=== PATIENT | female | born 1960 | race Caucasian/White ===

== ENCOUNTER 2016-11-14 18:55 | Inpatient (IN) | payer OTHER ==
[~2016-11-14] VITALS: Ht 162.6 cm; Wt 80.0 kg
[~2016-11-14 18:55] MED LIST: AMBI10TA PO; ASPI325T PO; ATOR40TA49 PO; CLON.1 PO; HYDR-3129 PO; IBUP-238 PO; IBUP800 PO; LISI-360 PO; METO25 PO; MORPHINE SULFATE 4 MG/ML INJ IV PRN; NITR.4 SL; PLAV75TA PO; XANA1TAB6 PO
[2016-11-14 18:57] VITALS: BP 94/65; PULSE 81; RESP 16; TEMP 98.1; O2SAT 97
[2016-11-14] MEDS ORDERED: SODIUM CHLOR 0.9% 1000 ML INJ 1,000 ML IV SCH (19:19)
[2016-11-14] MEDS ORDERED: BACT400T PO (19:20)
[2016-11-14] MEDS ORDERED: AMBI10TA PO (19:20)
[2016-11-14] MEDS ORDERED: METF500T PO (19:20)
[2016-11-14] MEDS ORDERED: LISI40TA PO (19:20)
[2016-11-14] MEDS ORDERED: XANA1TAB2 PO (19:20)
[2016-11-14] MEDS ORDERED: METO25TA3 PO (19:20)
[2016-11-14] MEDS ORDERED: ATOR40TA16 PO (19:20)
[2016-11-14] MEDS ORDERED: HYDR-3583 PO (19:20)
[2016-11-14] MEDS ORDERED: PLAV75TA29 PO (19:20)
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
[2016-11-14] MEDS ORDERED: ONDANSETRON HCL 4 MG/2 ML VIAL IVP ONE (19:30)
[2016-11-14] MEDS ORDERED: SODIUM CHLORIDE 0.9% FLUSH 5 ML FLUSH IVF PRN (19:30)
[2016-11-14 19:41] LABS: AUTOMATED NEUTROPHIL # 4.4 TH/MM3 (1.8-7.7); BASOPHIL % 0.5 % (0.0-2.0); EOSINOPHIL # 0.2 TH/MM3 (0-0.4); EOSINOPHIL % 3.3 % (0.0-4.0); HEMATOCRIT 43.5 % (35.0-46.0); HEMO FLAGS DIFF FINAL; LYMPH % 9.2 % (9.0-44.0); LYMPHOCYTE # 0.5 TH/MM3 (1.0-4.8); MEAN CELL VOLUME 86.5 FL (80.0-100.0); MEAN CORPUSCULAR HEMOGLOBIN 28.2 PG (27.0-34.0); MEAN CORPUSCULAR HGB CONC 32.6 % (32.0-36.0); MONO % 8.9 % (0.0-8.0); NEUT % 78.1 % (16.0-70.0); PLATELET COUNT 213 TH/MM3 (150-450); RED BLOOD COUNT 5.03 MIL/MM3 (4.00-5.30); RED CELL DISTRIBUTION WIDTH 15.5 % (11.6-17.2); WHITE BLOOD COUNT 5.7 TH/MM3 (4.0-11.0)
[2016-11-14 19:43] LABS: BLOOD, URINE NEG (NEG); COMMENT (UR) CULT NOT INDICATED; CULTURE IF INDICATED CULT NOT INDICATED; GLUCOSE,URINE NEG (NEG); HYALINE CAST, URINE 5 /lpf (RARE); KETONE, URINE NEG (NEG); MUCUS URINE FEW /lpf (OCC); NITRITE,URINE NEG (NEG); PH, URINE 5.5 (5.0-8.5); SQUAMOUS EPITHELIAL CELL URINE 3 /hpf (0-5); URINE COLOR YELLOW (YELLW/STRAW)
[2016-11-14 19:54] LABS: ALT (GPT) 442 U/L (10-53); ANION GAP 8 MEQ/L (5-15); AST (GOT) 279 U/L (15-37); BICARBONATE 24.1 MEQ/L (21.0-32.0); BLOOD UREA NITROGEN 31 MG/DL (7-18); CHLORIDE 101 MEQ/L (98-107); GLOMERULAR FILTRATION RATE 30 ML/MIN (>89); POTASSIUM 4.4 MEQ/L (3.5-5.1); SODIUM (NA) 133 MEQ/L (136-145)
[2016-11-14 19:57] LABS: ALKALINE PHOSPHATASE 373 U/L (45-117); TOTAL BILIRUBIN ADULT 0.7 MG/DL (0.2-1.0)
--- NOTE | 2016-11-14 20:03 | RADRPT ---
EXAM DATE/TIME: 11/14/2016 19:31 [facility] COMPARISON: CHEST SINGLE AP, May 25, 2016, 12:39. INDICATIONS : Cough. MEDICAL HISTORY : Hypertension. Cardiovascular disease. SURGICAL HISTORY : Coronary artery stent. ENCOUNTER: Initial ACUITY: 2 days PAIN SCORE: 0/10 LOCATION: Bilateral chest FINDINGS: The lungs are clear without infiltrate, nodule, or mass. There is no appreciable pleural effusion fo r technique. Heart and mediastinum are unremarkable. CONCLUSION: No acute cardiopulmonary disease. Sendy Gallo MD on November 14, 2016 at 20:00 Board Certified Radiologist. This report was verified electronically.
[2016-11-14] MEDS ORDERED: NALOXONE HCL 0.4 MG/ML AMP IV PRN (20:45)
[2016-11-14] MEDS: SODIUM CHLORIDE 0.9% FLUSH 5 ML FLUSH FLUSH SCH (20:57)
[2016-11-14] MEDS: SODIUM CHLOR 0.9% 1000 ML INJ 1,000 ML IV SCH (20:58)
[2016-11-14] MEDS ORDERED: GLUCAGON 1 MG/ML VIAL OTHER PRN (21:00)
[2016-11-14] MEDS: INSULIN ASPART SUPPLEMENTAL SCALE SQ SCH (21:00)
[2016-11-14] MEDS ORDERED: DEXTROSE 50% IN WATER 50 ML VIAL(D50) IV PUSH PRN (21:00)
[2016-11-14 21:12] VITALS: O2SAT 99
[2016-11-14 22:34] VITALS: BP 101/66; PULSE 73; RESP 18; TEMP 98.2; O2SAT 96
[2016-11-14] MEDS ORDERED: ZANTTAB9 PO (23:45)
[2016-11-14] MEDS ORDERED: RANITIDINE HCL 150 MG TAB PO SCH (23:45)
[2016-11-15] MEDS: FAMOTIDINE 20 MG TAB PO SCH ×3 (00:11→21:04)
[2016-11-15 04:07] VITALS: BP 118/69; PULSE 75; RESP 16; TEMP 98.3; O2SAT 97
[2016-11-15] MEDS: SODIUM CHLOR 0.9% 1000 ML INJ 1,000 ML IV SCH ×2 (06:11→11:42)
[2016-11-15] MEDS: INSULIN ASPART SUPPLEMENTAL SCALE SQ SCH ×4 (06:12→21:00)
[2016-11-15 06:59] LABS: AUTOMATED NEUTROPHIL # 2.6 TH/MM3 (1.8-7.7); BASOPHIL % 0.5 % (0.0-2.0); EOSINOPHIL # 0.2 TH/MM3 (0-0.4); EOSINOPHIL % 5.9 % (0.0-4.0); HEMATOCRIT 38.9 % (35.0-46.0); HEMO FLAGS DIFF FINAL; LYMPH % 12.7 % (9.0-44.0); LYMPHOCYTE # 0.5 TH/MM3 (1.0-4.8); MEAN CELL VOLUME 85.6 FL (80.0-100.0); MEAN CORPUSCULAR HEMOGLOBIN 28.7 PG (27.0-34.0); MEAN CORPUSCULAR HGB CONC 33.5 % (32.0-36.0); MONO % 10.5 % (0.0-8.0); NEUT % 70.4 % (16.0-70.0); PLATELET COUNT 148 TH/MM3 (150-450); RED BLOOD COUNT 4.55 MIL/MM3 (4.00-5.30); RED CELL DISTRIBUTION WIDTH 15.3 % (11.6-17.2); WHITE BLOOD COUNT 3.6 TH/MM3 (4.0-11.0)
[2016-11-15 07:18] LABS: BICARBONATE 23.5 MEQ/L (21.0-32.0); POTASSIUM 4.2 MEQ/L (3.5-5.1)
[2016-11-15 07:56] VITALS: BP 121/72; PULSE 80; RESP 18; TEMP 98; O2SAT 95
[2016-11-15] MEDS: SODIUM CHLORIDE 0.9% FLUSH 5 ML FLUSH FLUSH SCH ×2 (08:56→21:04)
[2016-11-15] MEDS ORDERED: GLUCAGON 1 MG/ML VIAL OTHER PRN (09:45)
[2016-11-15] MEDS ORDERED: DEXTROSE 50% IN WATER 50 ML VIAL(D50) IV PUSH PRN (09:45)
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
[2016-11-15] MEDS ORDERED: INSULIN ASPART SUPPLEMENTAL SCALE SQ SCH (11:00)
[2016-11-15] MEDS: CLOPIDOGREL 75 MG TAB PO SCH (11:40)
[2016-11-15] MEDS: MORPHINE SULFATE 4 MG/ML INJ IV PRN ×2 (11:41→18:35)
[2016-11-15 12:09] VITALS: BP 99/60; PULSE 70; RESP 18; TEMP 98; O2SAT 96
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
[2016-11-15] MEDS ORDERED: PILL SPLITTER OTHER PRN (14:15)
[2016-11-15 16:28] VITALS: BP 104/62; PULSE 73; RESP 18; TEMP 98.2; O2SAT 99
--- NOTE | 2016-11-15 17:15 | RADRPT ---
EXAM DATE/TIME: 11/15/2016 15:21 [facility] COMPARISON: No previous studies available for comparison. EXTERNAL COMPARISON : [facility], US BILATERAL RENAL & BLADDER, November 11, 2016 INDICATIONS : Increased lab values. MEDICAL HISTORY : Hypertension. Gastroesophageal reflux disease. Cerebrovascular accident. Abdominal aortic aneurysm. Diabetes. Squamous cell carcinoma. SURGICAL HISTORY : Tonsillectomy. Cardiac stents. Orthopedic surgey, right arm. ENCOUNTER: Initial ACUITY: 1 day PAIN SCORE: 6/10 LOCATION: Abdomen. MEASUREMENTS: LIVER: 16.9 cm length COMMON DUCT: 10 mm RIGHT KIDNEY: 10.3 x 5.0 x 4.1 cm SPLEEN: 11.6 cm length FINDINGS: LIVER: Normal echotexture without focal lesion or ductal dilatation. Hepatopedal flow within the portal vein . COMMON DUCT: No intraluminal mass or stone visualized. GALLBLADDER: Freely mobile stone is seen within the lumen of the gallbladder. No gallbladder wall thickening or pe richolecystic fluid. PANCREAS: The visualized portions are within normal limits. RIGHT KIDNEY: No hydronephrosis, stone or mass. SPLEEN: No focal lesion. CONCLUSION: 1. Dilated common bile duct. No obstructing stone or mass observed. Consider MRCP to further evaluate . 2. Cholelithiasis. No sonographic evidence to suggest acute cholecystitis. Gómez Woodard Jr., MD on November 15, 2016 at 17:10 Board Certified Radiologist. This report was verified electronically.
[2016-11-15 19:36] VITALS: BP 107/68; PULSE 69; RESP 20; TEMP 98; O2SAT 97
[2016-11-15 20:56] LABS: ACETAMINOPHEN LESS THAN 2.0 MCG/ML (10.0-30.0); FERRITIN 208 NG/ML (8-252); TRANSFERRIN IRON PROFILE 206 MG/DL (200-360)
[2016-11-15] MEDS: ALPRAZolam 1 MG TAB PO PRN (21:06)
[2016-11-15 23:23] VITALS: BP 111/69; PULSE 82; RESP 20; TEMP 98.2; O2SAT 96
[2016-11-16] MEDS: SODIUM CHLOR 0.9% 1000 ML INJ 1,000 ML IV SCH ×3 (02:22→22:43)
[2016-11-16] MEDS: MORPHINE SULFATE 4 MG/ML INJ IV PRN ×3 (02:23→23:54)
[2016-11-16] MEDS: ONDANSETRON HCL 4 MG/2 ML VIAL IVP PRN (02:32)
[2016-11-16 04:40] VITALS: BP 110/65; PULSE 70; RESP 20; TEMP 98.2; O2SAT 97
[2016-11-16 05:48] LABS: HEMATOCRIT 37.6 % (35.0-46.0); MEAN CELL VOLUME 85.6 FL (80.0-100.0); MEAN CORPUSCULAR HEMOGLOBIN 28.2 PG (27.0-34.0); PLATELET COUNT 140 TH/MM3 (150-450); RED CELL DISTRIBUTION WIDTH 15.3 % (11.6-17.2); REVIEW FLAG FINAL; WHITE BLOOD COUNT 2.7 TH/MM3 (4.0-11.0)
[2016-11-16] MEDS: INSULIN ASPART SUPPLEMENTAL SCALE SQ SCH ×4 (06:20→21:00)
[2016-11-16 06:53] LABS: ALT (GPT) 381 U/L (10-53); ANION GAP 6 MEQ/L (5-15); AST (GOT) 241 U/L (15-37); BICARBONATE 27.9 MEQ/L (21.0-32.0); BLOOD UREA NITROGEN 10 MG/DL (7-18); CHLORIDE 103 MEQ/L (98-107); GLOMERULAR FILTRATION RATE 60 ML/MIN (>89); POTASSIUM 4.5 MEQ/L (3.5-5.1); SODIUM (NA) 137 MEQ/L (136-145)
[2016-11-16 06:54] LABS: ALKALINE PHOSPHATASE 350 U/L (45-117); TOTAL BILIRUBIN ADULT 0.6 MG/DL (0.2-1.0)
[2016-11-16] MEDS: SODIUM CHLORIDE 0.9% FLUSH 5 ML FLUSH FLUSH SCH ×2 (07:43→21:00)
[2016-11-16] MEDS: FAMOTIDINE 20 MG TAB PO SCH ×2 (07:43→20:17)
[2016-11-16] MEDS: CLOPIDOGREL 75 MG TAB PO SCH (07:43)
[2016-11-16] MEDS: METOPROLOL TARTRATE 25 MG TAB PO SCH (07:43)
[2016-11-16] MEDS: ASPIRIN 81 MG CHEW TAB PO SCH (07:43)
[2016-11-16 08:31] VITALS: BP 122/74; PULSE 63; RESP 18; TEMP 98.7; O2SAT 97
[2016-11-16] MEDS: ALPRAZolam 1 MG TAB PO PRN ×2 (08:58→20:17)
--- NOTE | 2016-11-16 08:59 | HHI.GIFU ---
Subjective Remarks Resting in bed. No n/v. Does continue to have pain in right upper quadrant side, radiating to back. Afebrile. (Johnna Melendez) Objective Vitals I&O Vital Signs Date Time Temp Pulse Resp B/P Pulse Ox O2 Delivery O2 Flow Rate FiO2 11/16/16 08:31 98.7 63 18 122/74 97 11/16/16 04:40 98.2 70 20 110/65 97 11/15/16 23:23 98.2 82 20 111/69 96 11/15/16 19:36 98.0 69 20 107/68 97 11/15/16 16:28 98.2 73 18 104/62 99 11/15/16 12:09 98.0 70 18 99/60 96 I/O 11/15/16 11/15/16 11/15/16 11/16/16 11/16/16 11/16/16 07:00 15:00 23:00 07:00 15:00 23:00 Intake Total 802 ml Balance 802 ml Intake IV Total 802 ml # Voids 1 Laboratory Laboratory Tests Test 11/15/16 11/16/16 20:00 05:15 Iron Level 42 Total Iron Binding Capacity 288 Percent Iron Saturation 14.6 Ferritin 208 Acetaminophen Level LESS THAN 2.0 White Blood Count 2.7 Red Blood Count 4.40 Hemoglobin 12.4 Hematocrit 37.6 Mean Corpuscular Volume 85.6 Mean Corpuscular Hemoglobin 28.2 Mean Corpuscular Hemoglobin 33.0 Concent Red Cell Distribution Width 15.3 Platelet Count 140 Mean Platelet Volume 8.1 Sodium Level 137 Potassium Level 4.5 Chloride Level 103 Carbon Dioxide Level 27.9 Anion Gap 6 Blood Urea Nitrogen 10 Creatinine 0.97 Estimat Glomerular Filtration 60 Rate Random Glucose 104 Calcium Level 8.6 Total Bilirubin 0.6 Aspartate Amino Transf 241 (AST/SGOT) Alanine Aminotransferase 381 (ALT/SGPT) Alkaline Phosphatase 350 Total Protein 6.4 Albumin 3.2 Date/Time Procedure Status Source Growth 11/14/16 19:25 Influenza Types A,B Antigen (HAYLEY) - Final Complete Nasal Washing NEGATIVE FOR FLU A AND B ANTIGEN.... Imaging Last Impressions Liver Ultrasound 11/15/16 0000 Signed Impressions: Service Date/Time: Tuesday, November 15, 2016 15:21 - CONCLUSION: 1. Dilated common bile duct. No obstructing stone or mass observed. Consider MRCP to further evaluate. 2. Cholelithiasis. No sonographic evidence to suggest acute cholecystitis. Gómez Woodard Jr., MD Chest X-Ray 11/14/16 0000 Signed Impressions: Service Date/Time: Monday, November 14, 2016 19:31 - CONCLUSION: No acute cardiopulmonary disease. Sendy Gallo MD Physical Exam HEENT: Normocephalic; atraumatic; no jaundice. CHEST: CTA CARDIAC: RRR ABDOMEN: Soft, nondistended, mild RUQ tenderness; no hepatosplenomegaly; bowel sounds are present in all four quadrants. EXTREMITIES: No clubbing, cyanosis, or edema. SKIN: Normal; no rash; no jaundice. SCRUBBER SYSTEM ATTENDANT: No focal deficits; alert and oriented times three. (Johnna Melendez FARM LABORER) Assessment and Plan Plan ASSESSMENT: - Elevated LFTs. Liver Ultrasound (11/15/16)-----> 1. Dilated common bile duct. No obstructing stone or mass observed. Consider MRCP to further evaluate. 2. Cholelithiasis. No sonographic evidence to suggest acute cholecystitis. Hepatitis negative, EBV pending, CMV pending, Alpha 1 Antitrypsin pending, Ceruloplasmin pending, Iron Saturation 14.6%, Ferritin 208, ALE pending, ASMA pending, AMA pending. LFTs essentially unchanged, with T. Bili 0.6, AST 241, ALT 381, Alk Phosph 350. Clinically, she continues to have RUQ discomfort, radiating to back. Given this, persistent elevation of LFTs, and dilated CBD on US, will order MRCP to r/o biliary obstruction as etiology for her LFT derangement. Other etiologies could be ? medication induced, shocked (although MAP has been above 65 since arrival to[facility]) - CHERRY, Improved. - Leukopenia, Thrombocytopenia per attending Plt 140 - CAD, 5 stents, on Plavix and ASA - HTN, anxiety, Hyperlipidemia, DM per attending Plan: - Clear liquids - MRCP - Await ALE, ASMA, AMA - Await Ceruloplasmin, Alpha 1 antitrypsin deficiency - Await Celiac panel, EBV, CMV - CBC, LFTs in the am - Monitor labs closely - Avoid hepatotoxic meds - Further recommendation to follow based on results above - Patient seen and examined by Dr. Copeland and myself and this note is written on his behalf. ADDENDUM. MRCP (11/16/16)----> 1. There is a gallstone in the gallbladder. No surrounding inflammatory changes are demonstrated. 2. The common bile duct is dilated 1 cm. No definite common bile duct stones are demonstrated. Pt with persistent elevation of transaminases and RUQ discomfort, will schedule for ercp with possible sphincterotomy, possible stent placement in am (Johnna Melendez) Physician Comments Seen and examined, discussed with patient risk, benefits and possible complications of the ERCP, will need to role out CBD stone/ stricture/ampullary lesion. will proceed in AM. (Becky Copeland MD) Johnna Melendez Nov 16, 2016 08:59 Becky Copeland MD Nov 16, 2016 20:57
--- NOTE | 2016-11-16 09:20 | HHI.PR ---
Subjective History of Present Illness Patient feels better No more nausea or vomiting Less coughing No sputum production No fever or chills No abdominal pain Positive chronic back pain No chest pain or shortness of breath Offers no other complaints at bedside Vitals/Results Intake & Output 11/15/16 11/15/16 11/16/16 14:59 22:59 06:59 Intake Total 802 ml Balance 802 ml Intake IV Total 802 ml # Voids 1 Vital Signs Vital Signs Date Time Temp Pulse Resp B/P Pulse Ox O2 Delivery O2 Flow Rate FiO2 11/16/16 08:31 98.7 63 18 122/74 97 11/16/16 04:40 98.2 70 20 110/65 97 11/15/16 23:23 98.2 82 20 111/69 96 11/15/16 19:36 98.0 69 20 107/68 97 11/15/16 16:28 98.2 73 18 104/62 99 11/15/16 12:09 98.0 70 18 99/60 96 CBC/BMP: 11/16/16 0515 11/16/16 0515 Lab Results Laboratory Tests Test 11/15/16 11/16/16 20:00 05:15 Iron Level 42 MCG/DL Total Iron Binding Capacity 288 MCG/DL Percent Iron Saturation 14.6 % Ferritin 208 NG/ML Acetaminophen Level LESS THAN 2.0 MCG/ML White Blood Count 2.7 TH/MM3 Red Blood Count 4.40 MIL/MM3 Hemoglobin 12.4 GM/DL Hematocrit 37.6 % Mean Corpuscular Volume 85.6 FL Mean Corpuscular Hemoglobin 28.2 PG Mean Corpuscular Hemoglobin 33.0 % Concent Red Cell Distribution Width 15.3 % Platelet Count 140 TH/MM3 Mean Platelet Volume 8.1 FL Sodium Level 137 MEQ/L Potassium Level 4.5 MEQ/L Chloride Level 103 MEQ/L Carbon Dioxide Level 27.9 MEQ/L Anion Gap 6 MEQ/L Blood Urea Nitrogen 10 MG/DL Creatinine 0.97 MG/DL Estimat Glomerular Filtration 60 ML/MIN Rate Random Glucose 104 MG/DL Calcium Level 8.6 MG/DL Total Bilirubin 0.6 MG/DL Aspartate Amino Transf 241 U/L (AST/SGOT) Alanine Aminotransferase 381 U/L (ALT/SGPT) Alkaline Phosphatase 350 U/L Total Protein 6.4 GM/DL Albumin 3.2 GM/DL Physical Exam General General Appearance: No Acute Distress, Comfortable Eyes Eye Exam: Sclera White Ears & Nose Ears & Nose Exam: Nasal Mucosa [place] Throat Throat Exam: Oral Mucosa [place] & Moist Neck Neck Exam: Neck Supple, Trachea Midline Pulmonary Resp Exam: Clear Bilaterally, Breath Sounds Equal Cardiology CV Exam: Regular, Normal Sinus Rhythm Gastrointestinal/Abdomen GI Exam: Soft, Non-Tender, Bowel Sounds Present Musculoskeletal MS Exam: Normal Gait, Normal Tone Integumentary Skin Exam: Warm, Dry Extremeties Extremities Exam: No Edema, Pedal Pulses Palpable Neurologic Neuro Exam: Alert, Awake, Oriented, Speech Clear, Moving All Extremities Psychiatric Psych Exam: Appropriate Responses PUD Prophylasis PUD Prophylaxis: Protonix Assessment/Plan Assessment/Plan ASSESSMENT 1. Acute hepatitis, rule out viral hepatitis, rule-out medication-induced hepatitis especially Bactrim or [place] or statin . rule out Autoimmune hepatitis 2. Dilated CBD ?? etiology , CBD stone /mass/stricture 3. Gallstones. 4. Mild leukopenia and thrombocytopenia could be d/t viral infection 5. Acute renal failure d/t dehydration and prerenal azotemia. 6. Diabetes type 2 on metformin . 7. Hypertension 8. Hyperlipidemia 9. Coronary artery disease status post multiple prior stenting 10. Degenerative disc disease and chronic back pain. 11. Narcotic dependence 12. Generalized anxiety disorder. 13. History of recurrent UTI's. 14. History of abdominal aortic aneurysm. PLAN Hepatitis A ab neg hep B surface ag & core IgM ab neg hep C ab neg f/u LFTs noted US liver noted , +ve GS + Dilated CBD MRCP rec by GI GI input appreciated EBV & CMV serology [p] ALE/AMA/ASMA [p] cont IV hydration f/u renal function better ASA/Plavix BB IV pepcid IV analgesic diabetic diet accu checks qac & qhs w SSI statin on hold Discussed patient and her in detail Continue continue current medication Will follow Leta Johnson MD Nov 16, 2016 09:20
--- NOTE | 2016-11-16 11:32 | RADRPT ---
EXAM DATE/TIME: 11/16/2016 10:39 [facility] COMPARISON: US ABDOMEN - LIVER, November 15, 2016, 15:21. INDICATIONS : Abdominal pain. MEDICAL HISTORY : Hypertension. Diabetes mellitus type 2. Gastroesophageal reflux disease. Sleep apnea SURGICAL HISTORY : ORIF rt hand ENCOUNTER: Subsequent ACUITY: 2 day PAIN SCORE: 4/10 LOCATION: abdomen TECHNIQUE: Multiplanar, multisequence magnetic resonance imaging of the abdomen was performed. High-resolution 3D dataset was utilized to reconstruct maximum-intensity projection (MIP) images. FINDINGS: INTRAHEPATIC BILE DUCTS: Within normal limits. No significant anatomical variant is present. EXTRAHEPATIC BILE DUCTS: The common bile duct measures 1 cm. No stone or filling defect is identified. GALLBLADDER: There is a gallstone the gallbladder. There is no thickening of the gallbladder wall. There is no flu id around the gallbladder. No surrounding inflammatory changes are demonstrated. The cystic duct appe ars to be mildly prominent. LIVER: Normal size and signal intensity. No concerning liver lesion is identified on this non-contrast exam. PANCREAS: The main pancreatic duct is normal in size. There is no significant anatomical variant. Signal inte nsity is within normal limits. No mass is visualized on this non-contrast exam. OTHER: The remaining visualized structures demonstrate no acute abnormality on this non-contrast exam. CONCLUSION: 1. There is a gallstone in the gallbladder. No surrounding inflammatory changes are demonstrated. 2. The common bile duct is dilated 1 cm. No definite common bile duct stones are demonstrated. Larry Giang MD on November 16, 2016 at 11:23 Board Certified Radiologist. This report was verified electronically.
[2016-11-16 12:07] VITALS: BP 101/66; PULSE 71; RESP 18; TEMP 97.8
[2016-11-16 16:03] VITALS: BP 122/68; PULSE 63; RESP 18; TEMP 97.7; O2SAT 98
[2016-11-16 19:39] VITALS: BP 109/77; PULSE 70; RESP 16; TEMP 98.2; O2SAT 96
[2016-11-16] MEDS: ZOLPIDEM TARTRATE 10 MG TAB PO PRN (23:56)
[2016-11-17] VITALS (8 sets, daily range): BP systolic 116–141; BP diastolic 66–87; PULSE 60–88; RESP 16–19; TEMP 97.3–98.9; O2SAT 92–98
[2016-11-17 05:16] LABS: EBV VCA IgM Negative (Negative)
[2016-11-17] MEDS: INSULIN ASPART SUPPLEMENTAL SCALE SQ SCH ×4 (06:06→20:20)
[2016-11-17 07:26] LABS: AUTOMATED NEUTROPHIL # 1.6 TH/MM3 (1.8-7.7); BASOPHIL % 0.6 % (0.0-2.0); EOSINOPHIL # 0.2 TH/MM3 (0-0.4); EOSINOPHIL % 6.5 % (0.0-4.0); HEMATOCRIT 38.3 % (35.0-46.0); HEMO FLAGS DIFF FINAL; LYMPH % 34.9 % (9.0-44.0); LYMPHOCYTE # 1.3 TH/MM3 (1.0-4.8); MEAN CORPUSCULAR HEMOGLOBIN 28.5 PG (27.0-34.0); MEAN CORPUSCULAR HGB CONC 33.1 % (32.0-36.0); MONO % 15.3 % (0.0-8.0); NEUT % 42.7 % (16.0-70.0); PLATELET COUNT 148 TH/MM3 (150-450); RED BLOOD COUNT 4.45 MIL/MM3 (4.00-5.30); RED CELL DISTRIBUTION WIDTH 14.9 % (11.6-17.2); WHITE BLOOD COUNT 3.8 TH/MM3 (4.0-11.0)
[2016-11-17 07:54] LABS: INDIRECT BILIRUBIN 0.2 MG/DL (0.0-0.8); TOTAL BILIRUBIN ADULT 0.4 MG/DL (0.2-1.0)
[2016-11-17] MEDS: CLOPIDOGREL 75 MG TAB PO SCH (08:16)
--- NOTE | 2016-11-17 08:59 | HHI.PR ---
Subjective History of Present Illness Patient feels better No more nausea or vomiting Less coughing No sputum production No fever or chills No abdominal pain Positive chronic back pain No chest pain or shortness of breath Offers no other complaints at bedside Vitals/Results Vital Signs Vital Signs Date Time Temp Pulse Resp B/P Pulse Ox O2 Delivery O2 Flow Rate FiO2 11/17/16 07:34 97.7 81 17 122/83 95 11/17/16 04:23 98.0 72 18 116/84 96 11/17/16 00:14 98.5 72 16 132/87 98 11/16/16 19:39 98.2 70 16 109/77 96 11/16/16 16:03 97.7 63 18 122/68 98 11/16/16 12:07 97.8 71 18 101/66 CBC/BMP: 11/17/16 0620 11/16/16 0515 Lab Results Laboratory Tests Test 11/17/16 06:20 White Blood Count 3.8 TH/MM3 Red Blood Count 4.45 MIL/MM3 Hemoglobin 12.7 GM/DL Hematocrit 38.3 % Mean Corpuscular Volume 86.0 FL Mean Corpuscular Hemoglobin 28.5 PG Mean Corpuscular Hemoglobin 33.1 % Concent Red Cell Distribution Width 14.9 % Platelet Count 148 TH/MM3 Mean Platelet Volume 8.5 FL Neutrophils (%) (Auto) 42.7 % Lymphocytes (%) (Auto) 34.9 % Monocytes (%) (Auto) 15.3 % Eosinophils (%) (Auto) 6.5 % Basophils (%) (Auto) 0.6 % Neutrophils # (Auto) 1.6 TH/MM3 Lymphocytes # (Auto) 1.3 TH/MM3 Monocytes # (Auto) 0.6 TH/MM3 Eosinophils # (Auto) 0.2 TH/MM3 Basophils # (Auto) 0.0 TH/MM3 CBC Comment DIFF FINAL Differential Comment Total Bilirubin 0.4 MG/DL Direct Bilirubin 0.2 MG/DL Indirect Bilirubin 0.2 MG/DL Aspartate Amino Transf 169 U/L (AST/SGOT) Alanine Aminotransferase 338 U/L (ALT/SGPT) Alkaline Phosphatase 377 U/L Total Protein 6.2 GM/DL Albumin 3.2 GM/DL Physical Exam General General Appearance: No Acute Distress, Comfortable Eyes Eye Exam: Sclera White Ears & Nose Ears & Nose Exam: Nasal Mucosa [place] Throat Throat Exam: Oral Mucosa [place] & Moist Neck Neck Exam: Neck Supple, Trachea Midline Pulmonary Resp Exam: Clear Bilaterally, Breath Sounds Equal Cardiology CV Exam: Regular, Normal Sinus Rhythm Gastrointestinal/Abdomen GI Exam: Soft, Non-Tender, Bowel Sounds Present Musculoskeletal MS Exam: Normal Gait, Normal Tone Integumentary Skin Exam: Warm, Dry Extremeties Extremities Exam: No Edema, Pedal Pulses Palpable Neurologic Neuro Exam: Alert, Awake, Oriented, Speech Clear, Moving All Extremities Psychiatric Psych Exam: Appropriate Responses PUD Prophylasis PUD Prophylaxis: Protonix Assessment/Plan Assessment/Plan ASSESSMENT 1. Acute hepatitis, rule out viral hepatitis, rule-out medication-induced hepatitis especially Bactrim or [place] or statin . rule out Autoimmune hepatitis 2. Dilated CBD ?? etiology , CBD stone /mass/stricture 3. Gallstones. 4. Mild leukopenia and thrombocytopenia could be d/t viral infection 5. Acute renal failure d/t dehydration and prerenal azotemia. 6. Diabetes type 2 on metformin . 7. Hypertension 8. Hyperlipidemia 9. Coronary artery disease status post multiple prior stenting 10. Degenerative disc disease and chronic back pain. 11. Narcotic dependence 12. Generalized anxiety disorder. 13. History of recurrent UTI's. 14. History of abdominal aortic aneurysm. PLAN Hepatitis A ab neg hep B surface ag & core IgM ab neg hep C ab neg f/u LFTs noted US liver noted , +ve GS + Dilated CBD MRCP +VE GS Dilated CBD , no stone,stricture or masses noted GI Rec ERCP EBV +ve VCA IgG & +ve Nuclear Ag -ve VCA IgM ..... c/w past infection CMV serology still [p] ALE neg AMA/ASMA [p] cont IV hydration f/u renal function better ASA/Plavix BB IV pepcid IV analgesic diabetic diet accu checks qac & qhs w SSI statin on hold Discussed patient and her in detail Continue continue current medication Will follow Leta Johnson MD Nov 17, 2016 08:59
[2016-11-17] MEDS: ASPIRIN 81 MG CHEW TAB PO SCH (09:00)
[2016-11-17] MEDS: SODIUM CHLORIDE 0.9% FLUSH 5 ML FLUSH FLUSH SCH ×2 (09:00→20:20)
[2016-11-17] MEDS: FAMOTIDINE 20 MG TAB PO SCH ×2 (09:25→20:15)
[2016-11-17] MEDS: METOPROLOL TARTRATE 25 MG TAB PO SCH (09:25)
[2016-11-17] MEDS: SODIUM CHLOR 0.9% 1000 ML INJ 1,000 ML IV SCH ×2 (09:26→17:30)
[2016-11-17] MEDS: ALPRAZolam 1 MG TAB PO PRN ×2 (09:29→22:35)
[2016-11-17] MEDS: MORPHINE SULFATE 4 MG/ML INJ IV PRN ×2 (09:30→20:15)
--- NOTE | 2016-11-17 11:57 | EKG ---
Date Performed: 11/17/2016 Time Performed: 05:26:28 PTAGE: 56 years EKG: Sinus rhythm WITH FIRST DEGREE AV BLOCK ABNORMAL ECG Since PREVIOUS TRACING , no significant change noted PREVIOUS TRACIN05/27/2016 06.12 DOCTOR: Bart Nielsen Interpretating Date/Time 11/17/2016 11:54:44
[2016-11-17] MEDS ORDERED: PROPOFOL 200 MG/20 ML AMP IV ONE (15:43)
[2016-11-17] MEDS ORDERED: IOHEXOL 350 MG/ML 100 ML BTL (for RAD DIAG) OTHER ONE (16:00)
--- NOTE | 2016-11-17 16:35 | RADRPT ---
EXAM DATE/TIME: 11/17/2016 16:08 [place] COMPARISON: No previous studies available for comparison. INDICATIONS : Abdominal pain FLUORO TIME: 1.8 minutes IMAGE COUNT: 4 CONTRAST: Instilled by Ordering Physician MEDICAL HISTORY : Hypertension. Diabetes mellitus type II. Gastroesophageal reflux disease. Sleep apnea SURGICAL HISTORY : ORIF rt hand ENCOUNTER: Initial ACUITY: 3 days PAIN SCORE: Non-responsive. LOCATION: Abdomen FINDINGS: An ERCP was performed by the ordering physician. The images demonstrate contrast in a mildly dilated common bile duct. It appears an internal stent wa s placed. CONCLUSION: ERCP as above. for more detailed information, see the gastroenterology report. Larry Giang MD on November 17, 2016 at 16:33 Board Certified Radiologist. This report was verified electronically.
[2016-11-17] MEDS ORDERED: *ENALAPRILAT 1.25 MG/ML VIAL PERIprocedural Use ONLY ONE (17:08)
[2016-11-17] MEDS ORDERED: DO NOT ADM ANY ANTICOAGULANT DRUGS XX PRN (17:15)
[2016-11-17 17:58] LABS: MITOCHONDRIAL ABS LESS THAN 20.0 U (())
[2016-11-17] MEDS: ONDANSETRON HCL 4 MG/2 ML VIAL IVP PRN (18:25)
[2016-11-18] VITALS (8 sets, daily range): BP systolic 147–183; BP diastolic 88–104; PULSE 69–103; RESP 19–22; TEMP 97.8–98.6; O2SAT 93–97
[2016-11-18] MEDS: MORPHINE SULFATE 4 MG/ML INJ IV PRN ×5 (01:33→21:51)
[2016-11-18] MEDS: SODIUM CHLOR 0.9% 1000 ML INJ 1,000 ML IV SCH ×2 (03:15→15:05)
[2016-11-18] MEDS: INSULIN ASPART SUPPLEMENTAL SCALE SQ SCH ×4 (06:12→21:00)
[2016-11-18] MEDS: ASPIRIN 81 MG CHEW TAB PO SCH (08:31)
[2016-11-18] MEDS: METOPROLOL TARTRATE 25 MG TAB PO SCH (08:31)
[2016-11-18] MEDS: CLOPIDOGREL 75 MG TAB PO SCH (08:31)
[2016-11-18] MEDS: FAMOTIDINE 20 MG TAB PO SCH ×2 (08:31→21:45)
[2016-11-18] MEDS: ALPRAZolam 1 MG TAB PO PRN (08:36)
[2016-11-18] MEDS: SODIUM CHLORIDE 0.9% FLUSH 5 ML FLUSH FLUSH SCH ×2 (08:37→21:00)
[2016-11-18 10:04] LABS: INDIRECT BILIRUBIN 0.3 MG/DL (0.0-0.8); TOTAL BILIRUBIN ADULT 0.5 MG/DL (0.2-1.0)
[2016-11-18] MEDS ORDERED: MORPHINE SULFATE 8 MG/ML INJ IV PUSH ONE (13:15)
[2016-11-18] MEDS: DEXT 5%-NACL 0.45% 1000 ML INJ 1,000 ML IV SCH (15:22)
--- NOTE | 2016-11-18 15:28 | HHI.GIFU ---
Subjective Remarks Still complaining of abdominal pain with slight improvement from last night, responding to sedatives. Objective Vitals I&O Vital Signs Date Time Temp Pulse Resp B/P Pulse Ox O2 Delivery O2 Flow Rate FiO2 11/18/16 12:25 97.9 69 20 179/95 96 11/18/16 10:20 93 21 11/18/16 08:26 97.8 77 20 147/88 97 11/18/16 03:47 98.3 77 22 167/104 93 11/17/16 23:47 97.9 74 18 140/86 92 11/17/16 19:45 98.9 79 18 141/87 96 11/17/16 17:45 97.6 64 16 142/85 97 Room Air 11/17/16 17:30 62 16 155/89 97 Room Air 11/17/16 17:15 63 15 169/99 96 Room Air 11/17/16 17:01 98.3 88 19 130/66 96 11/17/16 17:00 65 15 178/104 96 Room Air 11/17/16 16:45 69 15 145/89 95 Room Air 11/17/16 16:30 71 15 127/84 95 Room Air 11/17/16 16:25 98.2 66 14 120/78 100 Nasal Cannula 2 I/O 11/17/16 11/17/16 11/17/16 11/18/16 11/18/16 11/18/16 06:59 14:59 22:59 06:59 14:59 22:59 Intake Total 2220 ml 505 ml 863 ml Output Total 1600 ml Balance 2220 ml -1095 ml 863 ml Intake Oral 720 ml 360 ml IV Total 1000 ml 145 ml 863 ml Other 500 ml Output Urine Total 1600 ml Stool Total 0 ml # Voids 4 # Bowel Movements 0 Laboratory Laboratory Tests Test 11/18/16 09:22 Total Bilirubin 0.5 Direct Bilirubin 0.2 Indirect Bilirubin 0.3 Aspartate Amino Transf 99 (AST/SGOT) Alanine Aminotransferase 253 (ALT/SGPT) Alkaline Phosphatase 441 Total Protein 6.8 Albumin 3.3 Lipase 09412 Date/Time Procedure Status Source Growth 11/14/16 19:25 Influenza Types A,B Antigen ([facility]LEY) - Final Complete Nasal Washing NEGATIVE FOR FLU A AND B ANTIGEN.... Physical Exam HEENT: Normocephalic; atraumatic; no jaundice. CHEST: CTA CARDIAC: RRR ABDOMEN: Soft, tender to palpation active BS. EXTREMITIES: No clubbing, cyanosis, or edema. SKIN: Normal; no rash; no jaundice. DOCUMENT CONTROL MANAGER: No focal deficits; alert and oriented times three. Assessment and Plan Plan ASSESSMENT: - Ampullary stenosis, S/P ERC with stent placement - Elevated LFTs, improving post stenting - Pancreatitis , NPO and pain control - Dilated common bile duct by CT and MRCP. - CHERRY, Improved. - Leukopenia, Thrombocytopenia per attending Plt 140 - CAD, 5 stents, on Plavix and ASA - HTN, anxiety, Hyperlipidemia, DM per attending Plan: - Keep NPO - Daily LFT and lipase - Pain control - IVF - PPI - Await ALE, ASMA, AMA - Await Ceruloplasmin, Alpha 1 antitrypsin deficiency - Avoid hepatotoxic meds - Further recommendation to follow based on results above Becky Copeland MD Nov 18, 2016 15:28
--- NOTE | 2016-11-18 16:38 | HHI.PR ---
Subjective History of Present Illness Clinical complaints of abdominal pain severe constant , radiating to her back Started after the ERCP procedure yesterday Also reported chronic back pain, wants more pain medication Positive nausea Less coughing No sputum production No fever or chills No chest pain or shortness of breath Offers no other complaints Vitals/Results Intake & Output 11/17/16 11/17/16 11/18/16 15:00 23:00 07:00 Intake Total 2220 ml 505 ml Output Total 1600 ml Balance 2220 ml -1095 ml Intake Oral 720 ml 360 ml IV Total 1000 ml 145 ml Other 500 ml Output Urine Total 1600 ml Stool Total 0 ml # Voids 4 # Bowel Movements 0 Vital Signs Vital Signs Date Time Temp Pulse Resp B/P Pulse Ox O2 Delivery O2 Flow Rate FiO2 11/18/16 12:25 97.9 69 20 179/95 96 11/18/16 10:20 93 21 11/18/16 08:26 97.8 77 20 147/88 97 11/18/16 03:47 98.3 77 22 167/104 93 11/17/16 23:47 97.9 74 18 140/86 92 11/17/16 19:45 98.9 79 18 141/87 96 11/17/16 17:45 97.6 64 16 142/85 97 Room Air 11/17/16 17:30 62 16 155/89 97 Room Air 11/17/16 17:15 63 15 169/99 96 Room Air 11/17/16 17:01 98.3 88 19 130/66 96 11/17/16 17:00 65 15 178/104 96 Room Air 11/17/16 16:45 69 15 145/89 95 Room Air CBC/BMP: 11/17/16 0620 11/16/16 0515 Lab Results Laboratory Tests Test 11/18/16 09:22 Total Bilirubin 0.5 MG/DL Direct Bilirubin 0.2 MG/DL Indirect Bilirubin 0.3 MG/DL Aspartate Amino Transf 99 U/L (AST/SGOT) Alanine Aminotransferase 253 U/L (ALT/SGPT) Alkaline Phosphatase 441 U/L Total Protein 6.8 GM/DL Albumin 3.3 GM/DL Lipase 41870 U/L Physical Exam General General Appearance: No Acute Distress, Comfortable Eyes Eye Exam: Sclera White Ears & Nose Ears & Nose Exam: Nasal Mucosa [place] Throat Throat Exam: Oral Mucosa [place] & Moist Neck Neck Exam: Neck Supple, Trachea Midline Pulmonary Resp Exam: Clear Bilaterally, Breath Sounds Equal Cardiology CV Exam: Regular, Normal Sinus Rhythm Gastrointestinal/Abdomen GI Exam: Soft, Bowel Sounds Present GI Remarks Epigastric tenderness, with voluntary guarding no rigidity no rebound tenderness Integumentary Skin Exam: Warm, Dry Extremeties Extremities Exam: No Edema, Pedal Pulses Palpable Neurologic Neuro Exam: Alert, Awake, Oriented, Speech Clear, Moving All Extremities Psychiatric Psych Exam: Appropriate Responses PUD Prophylasis PUD Prophylaxis: Protonix Assessment/Plan Assessment/Plan ASSESSMENT 1. Acute hepatitis, rule out viral hepatitis, rule-out medication-induced hepatitis especially Bactrim or [place] or statin . rule out Autoimmune hepatitis 2. Dilated CBD ?? etiology , CBD stone /mass/stricture 3. Gallstones. 4. Mild leukopenia and thrombocytopenia could be d/t viral infection 5. Acute renal failure d/t dehydration and prerenal azotemia. 6. Diabetes type 2 on metformin . 7. Hypertension 8. Hyperlipidemia 9. Coronary artery disease status post multiple prior stenting 10. Degenerative disc disease and chronic back pain. 11. Narcotic dependence 12. Generalized anxiety disorder. 13. History of recurrent UTI's. 14. History of abdominal aortic aneurysm. 15. Post ERCP pancreatitis PLAN Hepatitis A ab neg hep B surface ag & core IgM ab neg hep C ab neg US liver noted , +ve GS + Dilated CBD MRCP +VE GS Dilated CBD , no stone,stricture or masses noted s/p ERCP with stenting yesterday Elevated lipase noted Keep nothing by mouth Start IV fluid, D5 half NS at 125 cc an hour Increase IV analgesics EBV +ve VCA IgG & +ve Nuclear Ag -ve VCA IgM ..... c/w past infection CMV negative ALE neg AMA/ASMA negative f/u renal function better ASA/Plavix BB IV pepcid IV analgesic diabetic diet accu checks qac & qhs w SSI statin on hold Discussed patient again today Patient came later on, discussed with him also Discussed with RN Continue continue current medication Will follow Leta Johnson MD Nov 18, 2016 16:38
[2016-11-19] VITALS (8 sets, daily range): BP systolic 154–179; BP diastolic 92–113; PULSE 85–109; RESP 18–22; TEMP 97.8–99.3; O2SAT 93–96
[2016-11-19] MEDS: DEXT 5%-NACL 0.45% 1000 ML INJ 1,000 ML IV SCH ×3 (00:12→16:30)
[2016-11-19] MEDS: MORPHINE SULFATE 4 MG/ML INJ IV PRN ×5 (04:01→20:45)
[2016-11-19] MEDS: INSULIN ASPART SUPPLEMENTAL SCALE SQ SCH ×4 (06:10→20:42)
[2016-11-19 06:35] LABS: MEAN CELL VOLUME 84.3 FL (80.0-100.0); MEAN CORPUSCULAR HEMOGLOBIN 28.6 PG (27.0-34.0); MEAN CORPUSCULAR HGB CONC 33.9 % (32.0-36.0); PLATELET COUNT 166 TH/MM3 (150-450); RED BLOOD COUNT 4.39 MIL/MM3 (4.00-5.30); RED CELL DISTRIBUTION WIDTH 14.7 % (11.6-17.2); REVIEW FLAG FINAL; WHITE BLOOD COUNT 13.3 TH/MM3 (4.0-11.0)
[2016-11-19 07:14] LABS: ALKALINE PHOSPHATASE 364 U/L (45-117); ALT (GPT) 188 U/L (10-53); ANION GAP 10 MEQ/L (5-15); AST (GOT) 56 U/L (15-37); BICARBONATE 28.2 MEQ/L (21.0-32.0); BLOOD UREA NITROGEN 9 MG/DL (7-18); CHLORIDE 96 MEQ/L (98-107); GLOMERULAR FILTRATION RATE 84 ML/MIN (>89); POTASSIUM 3.3 MEQ/L (3.5-5.1); SODIUM (NA) 134 MEQ/L (136-145); TOTAL BILIRUBIN ADULT 0.6 MG/DL (0.2-1.0)
[2016-11-19] MEDS: ASPIRIN 81 MG CHEW TAB PO SCH (08:10)
[2016-11-19] MEDS: CLOPIDOGREL 75 MG TAB PO SCH (08:10)
[2016-11-19] MEDS: FAMOTIDINE 20 MG TAB PO SCH ×2 (08:10→20:43)
[2016-11-19] MEDS: METOPROLOL TARTRATE 25 MG TAB PO SCH (08:10)
[2016-11-19] MEDS: SODIUM CHLORIDE 0.9% FLUSH 5 ML FLUSH FLUSH SCH ×2 (08:11→20:39)
--- NOTE | 2016-11-19 12:31 | HHI.PR ---
Subjective History of Present Illness feels little better still having abd pain /pain meds are helping No N/V No fever or chills Less coughing No sputum production No fever or chills No chest pain or shortness of breath Offers no other complaints Vitals/Results Intake & Output 11/18/16 11/18/16 11/19/16 15:00 23:00 07:00 Intake Total 0 ml 1861 ml 0 ml Output Total 1340 ml Balance 0 ml 521 ml 0 ml Intake Oral 0 ml 0 ml 0 ml IV Total 1861 ml Output Urine Total 1340 ml # Voids 3 3 # Bowel Movements 0 0 0 Vital Signs Vital Signs Date Time Temp Pulse Resp B/P Pulse Ox O2 Delivery O2 Flow Rate FiO2 11/19/16 12:28 93 21 11/19/16 08:00 99.0 109 22 172/113 94 11/19/16 04:00 98.1 104 20 166/104 94 11/19/16 00:20 97.8 104 20 154/97 94 11/18/16 20:21 94 11/18/16 20:00 98.6 103 20 167/102 93 11/18/16 17:00 77 163/90 11/18/16 16:05 98.1 86 19 183/102 96 CBC/BMP: 11/19/16 0549 11/19/16 0549 Lab Results Laboratory Tests Test 11/19/16 05:49 White Blood Count 13.3 TH/MM3 Red Blood Count 4.39 MIL/MM3 Hemoglobin 12.6 GM/DL Hematocrit 37.0 % Mean Corpuscular Volume 84.3 FL Mean Corpuscular Hemoglobin 28.6 PG Mean Corpuscular Hemoglobin 33.9 % Concent Red Cell Distribution Width 14.7 % Platelet Count 166 TH/MM3 Mean Platelet Volume 8.5 FL Sodium Level 134 MEQ/L Potassium Level 3.3 MEQ/L Chloride Level 96 MEQ/L Carbon Dioxide Level 28.2 MEQ/L Anion Gap 10 MEQ/L Blood Urea Nitrogen 9 MG/DL Creatinine 0.72 MG/DL Estimat Glomerular Filtration 84 ML/MIN Rate Random Glucose 130 MG/DL Calcium Level 8.6 MG/DL Total Bilirubin 0.6 MG/DL Aspartate Amino Transf 56 U/L (AST/SGOT) Alanine Aminotransferase 188 U/L (ALT/SGPT) Alkaline Phosphatase 364 U/L Total Protein 6.7 GM/DL Albumin 3.1 GM/DL Lipase 4040 U/L Physical Exam General General Appearance: No Acute Distress, Comfortable Eyes Eye Exam: Pupils Equal, Sclera White, Extraocular Movement Intact Ears & Nose Ears & Nose Exam: Nasal Mucosa [place] Throat Throat Exam: Oral Mucosa [place] & Moist Neck Neck Exam: Neck Supple, Trachea Midline Pulmonary Resp Exam: Clear Bilaterally, Breath Sounds Equal Cardiology CV Exam: Regular, Normal Sinus Rhythm Gastrointestinal/Abdomen GI Exam: Soft, Bowel Sounds Present GI Remarks Epigastric tenderness, with voluntary guarding no rigidity no rebound tenderness Integumentary Skin Exam: Warm, Dry Extremeties Extremities Exam: No Edema, Pedal Pulses Palpable Neurologic Neuro Exam: Alert, Awake, Oriented, Speech Clear, Moving All Extremities Psychiatric Psych Exam: Appropriate Responses PUD Prophylasis PUD Prophylaxis: Protonix Assessment/Plan Assessment/Plan ASSESSMENT 1. Acute hepatitis, rule out viral hepatitis, rule-out medication-induced hepatitis especially Bactrim or [place] or statin . rule out Autoimmune hepatitis 2. Dilated CBD d/t stricture 3. Gallstones. 4. Mild leukopenia and thrombocytopenia could be d/t viral infection 5. Acute renal failure d/t dehydration and prerenal azotemia. 6. Diabetes type 2 on metformin . 7. Hypertension 8. Hyperlipidemia 9. Coronary artery disease status post multiple prior stenting 10. Degenerative disc disease and chronic back pain. 11. Narcotic dependence 12. Generalized anxiety disorder. 13. History of recurrent UTI's. 14. History of abdominal aortic aneurysm. 15. Post ERCP pancreatitis PLAN Hepatitis A ab neg hep B surface ag & core IgM ab neg hep C ab neg US liver noted , +ve GS + Dilated CBD MRCP +VE GS Dilated CBD , no stone,stricture or masses noted s/p ERCP with stenting lipase improving CLEAR LIQUID DIET cont IV fluid, D5 half NS at 125 cc an hour IV analgesics prn EBV +ve VCA IgG & +ve Nuclear Ag -ve VCA IgM ..... c/w past infection CMV negative ALE neg AMA/ASMA negative f/u LFT f/u renal function better ASA/Plavix BB IV pepcid IV analgesic diabetic diet accu checks qac & qhs w SSI statin on hold Discussed patient again will f/u Leta Johnson MD Nov 19, 2016 12:31 Leta Johnson MD Nov 19, 2016 12:31 Leta Johnson MD Nov 19, 2016 12:31
[2016-11-19] MEDS ORDERED: POTASSIUM CHLORIDE 8 MEQ CONTROLLED RELEASE TAB PO ONE (12:45)
[2016-11-19] MEDS ORDERED: ENALAPRILAT 1.25 MG/ML VIAL IV PUSH PRN (12:45)
--- NOTE | 2016-11-19 13:13 | HHI.GIFU ---
Subjective Remarks Feeling much better today, still nauseated but tolerating clears well. Objective Vitals I&O Vital Signs Date Time Temp Pulse Resp B/P Pulse Ox O2 Delivery O2 Flow Rate FiO2 11/19/16 12:28 93 21 11/19/16 12:00 98.7 85 20 179/108 95 11/19/16 08:00 99.0 109 22 172/113 94 11/19/16 04:00 98.1 104 20 166/104 94 11/19/16 00:20 97.8 104 20 154/97 94 11/18/16 20:21 94 11/18/16 20:00 98.6 103 20 167/102 93 11/18/16 17:00 77 163/90 11/18/16 16:05 98.1 86 19 183/102 96 I/O 11/18/16 11/18/16 11/18/16 11/19/16 11/19/16 11/19/16 07:00 15:00 23:00 07:00 15:00 23:00 Intake Total 505 ml 0 ml 1861 ml 0 ml Output Total 1600 ml 1340 ml Balance -1095 ml 0 ml 521 ml 0 ml Intake Oral 360 ml 0 ml 0 ml 0 ml IV Total 145 ml 1861 ml Output Urine Total 1600 ml 1340 ml Stool Total 0 ml # Voids 3 3 # Bowel Movements 0 0 0 Laboratory Laboratory Tests Test 11/19/16 05:49 White Blood Count 13.3 Red Blood Count 4.39 Hemoglobin 12.6 Hematocrit 37.0 Mean Corpuscular Volume 84.3 Mean Corpuscular Hemoglobin 28.6 Mean Corpuscular Hemoglobin 33.9 Concent Red Cell Distribution Width 14.7 Platelet Count 166 Mean Platelet Volume 8.5 Sodium Level 134 Potassium Level 3.3 Chloride Level 96 Carbon Dioxide Level 28.2 Anion Gap 10 Blood Urea Nitrogen 9 Creatinine 0.72 Estimat Glomerular Filtration 84 Rate Random Glucose 130 Calcium Level 8.6 Total Bilirubin 0.6 Aspartate Amino Transf 56 (AST/SGOT) Alanine Aminotransferase 188 (ALT/SGPT) Alkaline Phosphatase 364 Total Protein 6.7 Albumin 3.1 Lipase 4040 Date/Time Procedure Status Source Growth 11/14/16 19:25 Influenza Types A,B Antigen ([facility]LEY) - Final Complete Nasal Washing NEGATIVE FOR FLU A AND B ANTIGEN.... Physical Exam HEENT: Normocephalic; atraumatic; no jaundice. CHEST: CTA CARDIAC: RRR ABDOMEN: Soft, tender to palpation but significantly better than yesterday, active BS. EXTREMITIES: No clubbing, cyanosis, or edema. SKIN: Normal; no rash; no jaundice. SOLID WASTE FACILITY OPERATOR: No focal deficits; alert and oriented times three. Assessment and Plan Plan ASSESSMENT: - Ampullary stenosis, S/P ERC with stent placement - Elevated LFTs, improving post stenting - Pancreatitis , improving - Dilated common bile duct by CT and MRCP. - CHERRY, Improved. - Leukopenia, Thrombocytopenia per attending Plt 140 - CAD, 5 stents, on Plavix and ASA - HTN, anxiety, Hyperlipidemia, DM per attending Plan: - Clear liquid diet - Daily LFT and lipase - Pain control - IVF - PPI - Await ALE, ASMA, AMA - Await Ceruloplasmin, Alpha 1 antitrypsin deficiency - Avoid hepatotoxic meds - Further recommendation to follow based on results above Becky Copeland MD Nov 19, 2016 13:13
[2016-11-19] MEDS: ALPRAZolam 1 MG TAB PO PRN (13:53)
[2016-11-19] MEDS: ONDANSETRON HCL 4 MG/2 ML VIAL IVP PRN (16:29)
[2016-11-19] MEDS: METOPROLOL TARTRATE 50 MG TAB PO SCH (20:43)
[2016-11-19] MEDS: ZOLPIDEM TARTRATE 10 MG TAB PO PRN (20:44)
[2016-11-20] VITALS (8 sets, daily range): BP systolic 128–162; BP diastolic 84–100; PULSE 65–83; RESP 18–20; TEMP 98–99.2; O2SAT 93–98
[2016-11-20] MEDS: MORPHINE SULFATE 4 MG/ML INJ IV PRN ×6 (01:08→22:40)
[2016-11-20] MEDS: DEXT 5%-NACL 0.45% 1000 ML INJ 1,000 ML IV SCH ×3 (01:09→16:35)
[2016-11-20] MEDS: INSULIN ASPART SUPPLEMENTAL SCALE SQ SCH ×4 (05:46→21:00)
[2016-11-20 07:04] LABS: INDIRECT BILIRUBIN 0.4 MG/DL (0.0-0.8); TOTAL BILIRUBIN ADULT 0.6 MG/DL (0.2-1.0)
[2016-11-20 07:20] LABS: HEMATOCRIT 34.8 % (35.0-46.0); MEAN CELL VOLUME 84.9 FL (80.0-100.0); MEAN CORPUSCULAR HEMOGLOBIN 28.7 PG (27.0-34.0); MEAN CORPUSCULAR HGB CONC 33.8 % (32.0-36.0); PLATELET COUNT 172 TH/MM3 (150-450); RED CELL DISTRIBUTION WIDTH 14.7 % (11.6-17.2); REVIEW FLAG FINAL; WHITE BLOOD COUNT 12.6 TH/MM3 (4.0-11.0)
[2016-11-20] MEDS: SODIUM CHLORIDE 0.9% FLUSH 5 ML FLUSH FLUSH SCH ×2 (09:00→21:00)
[2016-11-20] MEDS: ASPIRIN 81 MG CHEW TAB PO SCH (09:18)
[2016-11-20] MEDS: CLOPIDOGREL 75 MG TAB PO SCH (09:18)
[2016-11-20] MEDS: METOPROLOL TARTRATE 50 MG TAB PO SCH ×2 (09:18→21:01)
[2016-11-20] MEDS: FAMOTIDINE 20 MG TAB PO SCH ×2 (09:18→21:01)
[2016-11-20] MEDS: ALPRAZolam 1 MG TAB PO PRN (10:41)
--- NOTE | 2016-11-20 12:13 | HHI.GIFU ---
Subjective Remarks Much better today and feeling hungry, no nausea or vomiting. Objective Vitals I&O Vital Signs Date Time Temp Pulse Resp B/P Pulse Ox O2 Delivery O2 Flow Rate FiO2 11/20/16 08:00 98.2 83 20 160/100 96 11/20/16 07:32 94 21 11/20/16 04:00 98.0 82 18 162/100 96 11/20/16 02:00 93 21 11/20/16 00:00 98.8 72 18 148/94 96 11/19/16 20:30 99.3 95 22 155/92 96 11/19/16 17:46 93 21 11/19/16 16:00 98.1 93 18 175/109 94 11/19/16 12:28 93 21 I/O 11/19/16 11/19/16 11/19/16 11/20/16 11/20/16 11/20/16 07:00 15:00 23:00 07:00 15:00 23:00 Intake Total 0 ml 1476 ml 240 ml 340 ml Output Total 1500 ml 1200 ml Balance 0 ml -24 ml 240 ml -860 ml Intake Oral 0 ml 0 ml 240 ml 340 ml IV Total 1476 ml Output Urine Total 1500 ml 1200 ml # Voids 3 2 # Bowel Movements 0 0 Laboratory Laboratory Tests Test 11/20/16 04:45 White Blood Count 12.6 Red Blood Count 4.10 Hemoglobin 11.8 Hematocrit 34.8 Mean Corpuscular Volume 84.9 Mean Corpuscular Hemoglobin 28.7 Mean Corpuscular Hemoglobin 33.8 Concent Red Cell Distribution Width 14.7 Platelet Count 172 Mean Platelet Volume 8.5 Total Bilirubin 0.6 Direct Bilirubin 0.2 Indirect Bilirubin 0.4 Aspartate Amino Transf 41 (AST/SGOT) Alanine Aminotransferase 140 (ALT/SGPT) Alkaline Phosphatase 348 Total Protein 6.3 Albumin 2.7 Lipase 413 Physical Exam HEENT: Normocephalic; atraumatic; no jaundice. CHEST: CTA CARDIAC: RRR ABDOMEN: Soft, minimal tenderness to palpation , active BS. EXTREMITIES: No clubbing, cyanosis, or edema. SKIN: Normal; no rash; no jaundice. LAB ANIMAL TECHNICIAN: No focal deficits; alert and oriented times three. Assessment and Plan Plan ASSESSMENT: - Ampullary stenosis, S/P ERC with stent placement - Elevated LFTs, improving post stenting - Pancreatitis , improving - Dilated common bile duct by CT and MRCP. - CHERRY, Improved. - Leukopenia, Thrombocytopenia per attending Plt 140 - CAD, 5 stents, on Plavix and ASA - HTN, anxiety, Hyperlipidemia, DM per attending Plan: - Advance diet to low fat soft - Daily LFT - Pain control - IVF - PPI - Await ALE, ASMA, AMA - Await Ceruloplasmin, Alpha 1 antitrypsin deficiency - Avoid hepatotoxic meds - Further recommendation to follow based on results above Becky Copeland MD Nov 20, 2016 12:13
[2016-11-20] MEDS: ONDANSETRON HCL 4 MG/2 ML VIAL IVP PRN ×2 (13:24→18:51)
--- NOTE | 2016-11-20 16:16 | HHI.PR ---
Subjective History of Present Illness still having abd pain , though not as bad tolerating full liquid diet /advance to regular No N/V No fever or chills Less coughing No sputum production No fever or chills No chest pain or shortness of breath Offers no other complaints Vitals/Results Intake & Output 11/19/16 11/19/16 11/20/16 15:00 23:00 07:00 Intake Total 1476 ml 240 ml 340 ml Output Total 1500 ml 1200 ml Balance -24 ml 240 ml -860 ml Intake Oral 0 ml 240 ml 340 ml IV Total 1476 ml Output Urine Total 1500 ml 1200 ml # Voids 2 # Bowel Movements 0 Vital Signs Vital Signs Date Time Temp Pulse Resp B/P Pulse Ox O2 Delivery O2 Flow Rate FiO2 11/20/16 12:00 98.2 69 18 141/84 98 11/20/16 08:00 98.2 83 20 160/100 96 11/20/16 07:32 94 21 11/20/16 04:00 98.0 82 18 162/100 96 11/20/16 02:00 93 21 11/20/16 00:00 98.8 72 18 148/94 96 11/19/16 20:30 99.3 95 22 155/92 96 11/19/16 17:46 93 21 CBC/BMP: 11/20/16 0445 11/19/16 0549 Lab Results Laboratory Tests Test 11/20/16 04:45 White Blood Count 12.6 TH/MM3 Red Blood Count 4.10 MIL/MM3 Hemoglobin 11.8 GM/DL Hematocrit 34.8 % Mean Corpuscular Volume 84.9 FL Mean Corpuscular Hemoglobin 28.7 PG Mean Corpuscular Hemoglobin 33.8 % Concent Red Cell Distribution Width 14.7 % Platelet Count 172 TH/MM3 Mean Platelet Volume 8.5 FL Total Bilirubin 0.6 MG/DL Direct Bilirubin 0.2 MG/DL Indirect Bilirubin 0.4 MG/DL Aspartate Amino Transf 41 U/L (AST/SGOT) Alanine Aminotransferase 140 U/L (ALT/SGPT) Alkaline Phosphatase 348 U/L Total Protein 6.3 GM/DL Albumin 2.7 GM/DL Lipase 413 U/L Physical Exam General General Appearance: No Acute Distress, Comfortable Eyes Eye Exam: Pupils Equal, Sclera White, Extraocular Movement Intact Ears & Nose Ears & Nose Exam: Nasal Mucosa [place] Throat Throat Exam: Oral Mucosa [place] & Moist Neck Neck Exam: Neck Supple, Trachea Midline Pulmonary Resp Exam: Clear Bilaterally, Breath Sounds Equal Cardiology CV Exam: Regular, Normal Sinus Rhythm Gastrointestinal/Abdomen GI Exam: Soft, Bowel Sounds Present GI Remarks Epigastric tenderness, with voluntary guarding no rigidity no rebound tenderness Integumentary Skin Exam: Warm, Dry Extremeties Extremities Exam: No Edema, Pedal Pulses Palpable Neurologic Neuro Exam: Alert, Awake, Oriented, Speech Clear, Moving All Extremities Psychiatric Psych Exam: Appropriate Responses PUD Prophylasis PUD Prophylaxis: Protonix Assessment/Plan Assessment/Plan ASSESSMENT 1. Acute hepatitis, rule out viral hepatitis, rule-out medication-induced hepatitis especially Bactrim or [place] or statin . rule out Autoimmune hepatitis 2. Dilated CBD d/t stricture 3. Gallstones. 4. Mild leukopenia and thrombocytopenia could be d/t viral infection 5. Acute renal failure d/t dehydration and prerenal azotemia. 6. Diabetes type 2 on metformin . 7. Hypertension 8. Hyperlipidemia 9. Coronary artery disease status post multiple prior stenting 10. Degenerative disc disease and chronic back pain. 11. Narcotic dependence 12. Generalized anxiety disorder. 13. History of recurrent UTI's. 14. History of abdominal aortic aneurysm. 15. Post ERCP pancreatitis PLAN Hepatitis A ab neg hep B surface ag & core IgM ab neg hep C ab neg US liver noted , +ve GS + Dilated CBD MRCP +VE GS Dilated CBD , no stone,stricture or masses noted s/p ERCP with stenting lipase improving advance to regular diet d/c IV fluid, D5 half NS at 125 cc an hour IV analgesics prn EBV +ve VCA IgG & +ve Nuclear Ag -ve VCA IgM ..... c/w past infection CMV negative ALE neg AMA/ASMA negative f/u LFT ASA/Plavix BB IV pepcid IV analgesic diabetic diet accu checks qac & qhs w SSI statin on hold possible d./c home in am Discussed patient again will f/u Leta Johnson MD Nov 20, 2016 16:16
[2016-11-21] VITALS: BP 135/80; PULSE 67; RESP 20; TEMP 97.4; O2SAT 96
[2016-11-21] MEDS: ZOLPIDEM TARTRATE 10 MG TAB PO PRN (00:44)
[2016-11-21] MEDS: ONDANSETRON HCL 4 MG/2 ML VIAL IVP PRN ×2 (00:44→06:39)
[2016-11-21] MEDS: DEXT 5%-NACL 0.45% 1000 ML INJ 1,000 ML IV SCH ×2 (00:46→08:00)
[2016-11-21] MEDS: MORPHINE SULFATE 4 MG/ML INJ IV PRN ×3 (02:56→11:00)
[2016-11-21 04:00] VITALS: BP 111/70; PULSE 67; RESP 20; TEMP 98.3; O2SAT 95
[2016-11-21] MEDS: INSULIN ASPART SUPPLEMENTAL SCALE SQ SCH ×2 (06:35→11:00)
[2016-11-21 08:00] VITALS: BP 118/59; PULSE 65; RESP 16; TEMP 98.4; O2SAT 97
[2016-11-21] MEDS: SODIUM CHLORIDE 0.9% FLUSH 5 ML FLUSH FLUSH SCH (09:00)
[2016-11-21] MEDS: ASPIRIN 81 MG CHEW TAB PO SCH (09:03)
[2016-11-21] MEDS: FAMOTIDINE 20 MG TAB PO SCH (09:03)
[2016-11-21] MEDS: METOPROLOL TARTRATE 50 MG TAB PO SCH (09:03)
[2016-11-21] MEDS: CLOPIDOGREL 75 MG TAB PO SCH (09:03)
[2016-11-21 09:06] LABS: HEMATOCRIT 33.9 % (35.0-46.0); MEAN CELL VOLUME 85.2 FL (80.0-100.0); MEAN CORPUSCULAR HGB CONC 32.9 % (32.0-36.0); PLATELET COUNT 233 TH/MM3 (150-450); RED BLOOD COUNT 3.97 MIL/MM3 (4.00-5.30); RED CELL DISTRIBUTION WIDTH 14.4 % (11.6-17.2); REVIEW FLAG FINAL; WHITE BLOOD COUNT 7.6 TH/MM3 (4.0-11.0)
[2016-11-21 09:46] LABS: INDIRECT BILIRUBIN 0.2 MG/DL (0.0-0.8); TOTAL BILIRUBIN ADULT 0.3 MG/DL (0.2-1.0)
--- NOTE | 2016-11-21 11:08 | HHI.PR ---
Subjective History of Present Illness abd pain IS BETTER tolerating regular diet No N/V No fever or chills c/o rash on back R side no cough No sputum production No fever or chills No chest pain or shortness of breath Offers no other complaints Vitals/Results Intake & Output 11/20/16 11/20/16 11/21/16 15:00 23:00 07:00 Intake Total 720 ml 1582 ml 480 ml Output Total 1600 ml Balance -880 ml 1582 ml 480 ml Intake Oral 720 ml 480 ml 480 ml IV Total 1102 ml Output Urine Total 1600 ml # Voids 2 3 # Bowel Movements 0 0 Vital Signs Vital Signs Date Time Temp Pulse Resp B/P Pulse Ox O2 Delivery O2 Flow Rate FiO2 11/21/16 08:00 98.4 65 16 118/59 97 11/21/16 04:00 Room Air 11/21/16 04:00 98.3 67 20 111/70 95 11/21/16 00:00 Room Air 11/21/16 00:00 97.4 67 20 135/80 96 11/20/16 20:00 Room Air 11/20/16 20:00 99.2 76 20 152/95 93 11/20/16 16:00 98.3 72 18 158/94 96 11/20/16 12:00 98.2 69 18 141/84 98 CBC/BMP: 11/21/16 0822 11/19/16 0549 Lab Results Laboratory Tests Test 11/21/16 08:22 White Blood Count 7.6 TH/MM3 Red Blood Count 3.97 MIL/MM3 Hemoglobin 11.1 GM/DL Hematocrit 33.9 % Mean Corpuscular Volume 85.2 FL Mean Corpuscular Hemoglobin 28.0 PG Mean Corpuscular Hemoglobin 32.9 % Concent Red Cell Distribution Width 14.4 % Platelet Count 233 TH/MM3 Mean Platelet Volume 8.1 FL Total Bilirubin 0.3 MG/DL Direct Bilirubin 0.1 MG/DL Indirect Bilirubin 0.2 MG/DL Aspartate Amino Transf 42 U/L (AST/SGOT) Alanine Aminotransferase 113 U/L (ALT/SGPT) Alkaline Phosphatase 384 U/L Total Protein 6.1 GM/DL Albumin 2.5 GM/DL Lipase 169 U/L Physical Exam General General Appearance: No Acute Distress, Comfortable Eyes Eye Exam: Pupils Equal, Sclera White, Extraocular Movement Intact Ears & Nose Ears & Nose Exam: Nasal Mucosa [place] Throat Throat Exam: Oral Mucosa [place] & Moist Neck Neck Exam: Neck Supple, Trachea Midline Pulmonary Resp Exam: Clear Bilaterally, Breath Sounds Equal Cardiology CV Exam: Regular, Normal Sinus Rhythm Gastrointestinal/Abdomen GI Exam: Soft, Bowel Sounds Present GI Remarks mild Epigastric tenderness, No voluntary guarding no rigidity no rebound tenderness Integumentary Skin Exam: Warm, Dry Skin Remarks small vesicular eruption in 2 groups On side back , another small red spot. none crossing midline Extremeties Extremities Exam: No Edema, Pedal Pulses Palpable Neurologic Neuro Exam: Alert, Awake, Oriented, Speech Clear, Moving All Extremities Psychiatric Psych Exam: Appropriate Responses PUD Prophylasis PUD Prophylaxis: Protonix Assessment/Plan Assessment/Plan ASSESSMENT 1. Acute idiopathic hepatitis,suspect viral 2. Dilated CBD d/t stricture 3. Gallstones. 4. s/p Mild leukopenia and thrombocytopenia could be d/t viral infection 5. Acute renal failure d/t dehydration and prerenal azotemia. 6. Diabetes type 2 on metformin . 7. Hypertension 8. Hyperlipidemia 9. Coronary artery disease status post multiple prior stenting 10. Degenerative disc disease and chronic back pain. 11. Narcotic dependence 12. Generalized anxiety disorder. 13. History of recurrent UTI's. 14. History of abdominal aortic aneurysm. 15. Post ERCP pancreatitis 16. Vesicular eruption/ suspect Herpes zoster , noticed yesterday PLAN Hepatitis A ab neg hep B surface ag & core IgM ab neg hep C ab neg US liver noted , +ve GS + Dilated CBD MRCP +VE GS Dilated CBD , no stone,stricture or masses noted s/p ERCP with stenting lipase much better cardiac diet d/c IV fluid, analgesics prn EBV +ve VCA IgG & +ve Nuclear Ag -ve VCA IgM ..... c/w past infection CMV negative ALE neg AMA/ASMA negative f/u LFT noted , transaminases are better , ALP remained elevated despite of stent cont ASA/Plavix BB pepcid diabetic diet accu checks qac & qhs w SSI statin on hold start valcyclovir 1000 mg po tid x 7 days medically stable for d.c d/c home today see MRS see Orders f/u pcp f/u GI Leta Johnson MD Nov 21, 2016 11:08
[2016-11-21 12:00] VITALS: BP 133/79; PULSE 61; RESP 16; TEMP 97.2; O2SAT 97
[2016-11-21] MEDS ORDERED: HYDR-3366 PO (12:37)
[2016-11-21] MEDS ORDERED: VALT500T PO (12:37)
[2016-11-21] MEDS ORDERED: valACYclovir HCL 500 MG TAB PO SCH (14:00)
--- NOTE | 2016-11-25 18:47 | HHI.DS ---
Discharge Summary Admission Date Nov 15, 2016 at 09:17 Discharge Date: Nov 21, 2016 Admitting Diagnosis acute renal insufficiency, transaminitis, generalized malaise (1) Acute hepatitis (2) Transaminitis (3) Pancreatitis (4) Diabetes 1.5, managed as type 2 (5) Acute renal insufficiency (6) CAD (coronary artery disease) (7) Hyperlipidemia (8) Hypertension Procedures Underwent MRCP with findings of +VE GS, dilated CBD , no stone,stricture or masses noted Underwent ERCP with stenting 11/17 CBC/BMP: 11/21/16 0822 Hospital Course This is a 55-year-old obese female with an extensive past medical history including hypertension, diabetes, hyperlipidemia, coronary artery disease who has a history of degenerative disease and chronic anxiety. She also gets intermittent urinary tract infections for which she receives an antibiotic. She was in the usual state of health until about 10 to 11 days ago when she developed what she describes as a head cold. She has congestion, head congestion, nasal stuffiness and a mild cough that later settled in her chest. She started coughing more and was bringing up yellowish white sputum. She had body aches and malaise. She also developed back pain which was constant worsened with activity. She went to see her primary care physician last and saw his nurse practitioner. Due to her back pain, they thought she may be developing a urinary tract infection or a kidney infection. They sent her for an ultrasound and prescribed her oral Bactrim. The patient was taking antibiotics, however, her condition started to get worse. She became increasingly weak, nauseous, lost her appetite. She reportedly had an ultrasound done at [place] which shows the presence of gallstones. She has a chronic aortic abdominal aneurysm which had been stable. The patient has not been able to eat for the last few days. She was surviving on water and a small amount of page court. She denied vomiting per se. Denied melena or bright red blood per rectum. She suffers from constipation. She does not make as much urine as she used to. She was extremely weak and still has back pain. She ended up coming to the hospital. Upon arrival, she clinically appeared dehydrated. She had evidence of renal failure, elevated liver enzymes and recommendation was given by the ER physician for the patient to be admitted to the hospital. Pt admitted for: 1. Acute idiopathic hepatitis,suspect viral 2. Dilated CBD d/t stricture 3. Gallstones. 3. Acute renal failure, suspect dehydration and prerenal azotemia. 4. Mild leukopenia and thrombocytopenia. 5. Recently found gallstones. 6. Diabetes type 2 on metformin . 7. Hypertension 8. Hyperlipidemia 9. Coronary artery disease status post multiple prior stenting 10. Degenerative disc disease and chronic back pain. 11. Narcotic dependence 12. Generalized anxiety disorder. 13. History of recurrent UTI's. 14. History of abdominal aortic aneurysm. 15. Post ERCP pancreatitis 16. Vesicular eruption/ suspect Herpes zoster , noticed yesterday 17. Pancreatitis During the course of the hospitalization, the following took place: Patient put on IV fluids, clear liquid diet, acute hepatitis panel done Ultrasound of liver and gallbladder was done, results as noted above Avoided hepatotoxic agents including statins, [place] and Bactrim. Obtained GI consultation. Monitor renal function, continued on IV hydration, metformin held Accu-Chek monitoring q.a.c. and q.h.s. as sliding scale coverage. Continue beta-zheng, aspirin and Plavix as she has known history of coronary artery disease. Continued Xanax. Used IV morphine for back pain. Was instructed about limiting the oral narcotics and explained to her the consequences of chronic narcotic use with drug dependence and tolerance. She replied understanding. Laboratory workup was reviewed, Hepatitis A ab neg, hep B surface ag & core IgM ab neg, hep C ab neg US liver noted , +ve GS + Dilated CBD Underwent MRCP with findings of +VE GS, dilated CBD , no stone,stricture or masses noted Underwent ERCP with stenting Lipase started improving LFTs started trending down Patient tolerated diet well, was put on a cardiac diet IV fluids were discontinued Further lab workup was evaluated: EBV +ve VCA IgG & +ve Nuclear Ag -ve VCA IgM ..... c/w past infection CMV negative ALE neg AMA/ASMA negative She was noted with the rash, was started on valcyclovir 1000 mg po tid x 7 days Renal function started improving, back to normal Patient had no further abdominal pain Patient was cleared for discharge Pt Condition on Discharge: Stable Discharge Disposition: Discharge Home Discharge Instructions DIET: Follow Instructions for: Heart Healthy Diet, Diabetic Diet Fluid Restrictions: none Activities you can perform: Regular-No Restrictions Follow up Referrals: Gastroenterology - 3 Weeks PCP Follow-up - 1 Week New Medications: Hydrocodone-Acetaminophen ([place]ant) 10-325 Mg Tab 1 TAB PO Q6H PRN PAIN #30 Ref 0 TAB Valacyclovir (Valtrex) 500 Mg Tab 1000 MG PO Q8HR shingles #20 TAB Continued Medications: Alprazolam (Xanax) 1 Mg Tab 1 MG PO TID PRN ANXIETY Ref 0 TAB Clopidogrel (Plavix) 75 Mg Tab 75 MG PO DAILY Blood Clot Prevention #30 Ref 0 TAB Lisinopril (Lisinopril) 40 Mg Tab 40 MG PO DAILY Blood Pressure Management #30 Ref 0 TAB Metformin (Metformin) 500 Mg Tab 500 MG PO BIDPC With meals Blood Sugar Management #60 Ref 0 TAB Metoprolol Tartrate (Metoprolol Tartrate) 25 Mg Tab 25 MG PO DAILY #30 Ref 0 TAB Ranitidine (Zantac 75) 75 Mg Tab 75 MG PO DAILY Take 30 to 60 minutes before eating food or drinking beverages that cause heartburn. Heartburn Management Ref 2 TAB Zolpidem (Ambien) 10 Mg Tab 10 MG PO HS PRN INSOMNIA Ref 0 TAB Discontinued Medications: Atorvastatin (Atorvastatin) 40 Mg Tab 40 MG PO HS Cholesterol Management #30 Ref 0 TAB Hydrocodone-Acetaminophen (Hydrocodone-Acetaminophen) 10-325 mg Tab 1 TAB PO Q6H PRN PAIN Ref 0 TAB Sulfamethoxazole-Trimethoprim (Bactrim) 400-80 Mg Tab 1 TAB PO DAILY Infection Ref 0 TAB Aspen Guerrero Nov 25, 2016 18:47
[2017-01-13] MEDS ORDERED: LISI-515 PO (14:17)
[2017-01-17] MEDS ORDERED: ASPI81CH CHEW (07:42)
[2017-01-17] MEDS ORDERED: ASPI325T PO (07:42)
[2017-01-17] MEDS ORDERED: LIPI40TA PO (07:42)
== END 2016-11-21 13:24 | disposition home or self-care (01) | DRG 441 ==
LOC: NEPA 18:55 → NEDA 20:26 → NEPHCDU 22:03 → OBSVTOIN 11-15 09:17 → N04B 11-17 17:14
PROVIDERS: ADMIT Specialist; ATTEND Specialist
PROC: 0F798DZ Dilation of Common Bile Duct with Intraluminal Device, Via Natural or Artificial Opening Endoscopic (ICD-10-PCS; principal; 2016-11-17 15:30)
DX: B17.9 Acute viral hepatitis, unspecified (principal); K83.1 Obstruction of bile duct; K85.90 Acute pancreatitis without necrosis or infection, unspecified; N17.9 Acute kidney failure, unspecified; F11.20 Opioid dependence, uncomplicated; D69.6 Thrombocytopenia, unspecified; B02.9 Zoster without complications; E89.89 Other postprocedural endocrine and metabolic complications and disorders; E86.0 Dehydration; N28.9 Disorder of kidney and ureter, unspecified; I10 Essential (primary) hypertension; E11.9 Type 2 diabetes mellitus without complications; D72.819 Decreased white blood cell count, unspecified; E78.00 Pure hypercholesterolemia, unspecified; I25.10 Atherosclerotic heart disease of native coronary artery without angina pectoris; I71.4 Abdominal aortic aneurysm, without rupture; K80.70 Calculus of gallbladder and bile duct without cholecystitis without obstruction; Z86.73 Personal history of transient ischemic attack (TIA), and cerebral infarction without residual deficits; Z95.5 Presence of coronary angioplasty implant and graft; Z79.84 Long term (current) use of oral hypoglycemic drugs; G47.30 Sleep apnea, unspecified; K21.9 Gastro-esophageal reflux disease without esophagitis; Z87.440 Personal history of urinary (tract) infections; K59.00 Constipation, unspecified; E78.5 Hyperlipidemia, unspecified; F41.1 Generalized anxiety disorder; Z85.828 Personal history of other malignant neoplasm of skin; F17.210 Nicotine dependence, cigarettes, uncomplicated; G89.29 Other chronic pain; E66.9 Obesity, unspecified; Z79.891 Long term (current) use of opiate analgesic; Y83.8 Other surgical procedures as the cause of abnormal reaction of the patient, or of later complication, without mention of misadventure at the time of the procedure; Y82.8 Other medical devices associated with adverse incidents; Y92.239 Unspecified place in hospital as the place of occurrence of the external cause
CPT/HCPCS: 71010; 74181; 74330; 76377; 76705; 80048; 80053; 80074; 80076; 80329; 81001; 82103; 82390; 82728; 82948; 83516; 83520; 83540; 83550; 83690; 85025; 85027; 86038; 86256; 86664; 86665; 87496; 87804; 93005; 96374; C1769; C2625; G0378; G0479; J1815; J2270; J2405; J3010; J7030; Q9967

== ENCOUNTER → 2017-01-17 | Outpatient (CLI) | payer OTHER ==
[~2017-01-17] VITALS: Ht 162.6 cm; Wt 78.0 kg
[~2017-01-17] MED LIST changes: +ASPI81CH CHEW; -ATOR40TA49 PO; -CLON.1 PO; +DO NOT ADM ANY ANTICOAGULANT DRUGS XX PRN; -HYDR-3129 PO; +HYDR-3366 PO; -IBUP-238 PO; -IBUP800 PO; +INSULIN HUMAN REGULAR 1,000 UNITS/10 ML VIAL SQ PRN; +LACTATED RINGER'S 1000 ML IV SCH; +LIPI40TA PO; -LISI-360 PO; +LISI-515 PO; -METO25 PO; +METOPROLOL TARTRATE 25 MG TAB PO PRN; -MORPHINE SULFATE 4 MG/ML INJ IV PRN; -NITR.4 SL; -PLAV75TA PO; +PLAV75TA29 PO; +PROPOFOL 200 MG/20 ML AMP IV ONE; +SODIUM CHLORID 0.9% 500 ML IV SCH; +XANA1TAB2 PO; -XANA1TAB6 PO; +ZANTTAB9 PO
[2017-01-17 07:00] VITALS: BP 127/89; PULSE 70; RESP 20; TEMP 97.9; O2SAT 98
--- NOTE | 2017-01-17 10:34 | PD.PROCEDR ---
GI Procedure REFERRING PHYSICIAN Dr. colindres PROCEDURE PERFORMED Endoscopic ultrasound INDICATION FOR PROCEDURE Dilated common bile duct PROCEDURE: The procedure, risks and benefits were discussed with Ms. Yusuf and informed consent was obtained. Anesthesia sedated her with Diprivan. She was placed in the left lateral decubitus position. EUS: The Pentax videoscope was introduced through the oropharynx and advanced to the second portion of the duodenum under direct visualization. FINDINGS: Endoscopic ultrasound of the pancreas is basically unremarkable from head to tail pancreatic duct measuring 2.3 mm isoechoic homogeneous throughout No lymphadenopathy identified Common bile duct is decompressed with a stent no abnormal masses noted along the route of the common bile duct The ampulla was also noted to be homogeneous and isoechoic The gallbladder was also unremarkable ESTIMATED BLOOD LOSS: None SPECIMENS REMOVED: None COMPLICATIONS: None IMPRESSION: Unremarkable endoscopic ultrasound of the pancreas and the ampulla and biliary system PLAN: Patient to be scheduled for an ERCP to remove stent and this is to be done in the next 1-2 months Follow up in clinic in 2-3 weeks prior to ERCP Disposition patient to be discharged home Condition stable Diet as tolerated Activity as tolerated Rishi Cisneros MD Jan 17, 2017 10:34
[2017-01-17 11:10] VITALS: BP 119/77; PULSE 73; RESP 20; TEMP 98.9; O2SAT 97
== END ==
LOC: HEND 06:42
PROVIDERS: ATTEND Internal Medicine Gastroenterology
DX: K29.70 Gastritis, unspecified, without bleeding (principal)
CPT/HCPCS: 00740; 43259; J3010; J7120